=== PATIENT | female | born 1935 | race Two or more races ===

== ENCOUNTER 2025-03-02 17:38 | Emergency (ER) | payer OTHER ==
[~2025-03-02] VITALS: Ht 160 cm; Wt 40.8 kg
[2025-03-02 19:10] VITALS: BP 166/76; O2SAT 97
[2025-03-02] MEDS ORDERED: ACETAMINOPHEN 500 MG GEL..CAP PO ONE (21:00)
[2025-03-02] MEDS ORDERED: CLINDAMYCIN HCL 300 MG CAPSULE PO ONE (21:00)
[2025-03-02] MEDS ORDERED: TETANUS & DIPHTHERIA TOX,ADULT 0.5 ML VIAL IM ONE (21:00)
[2025-03-02] MEDS ORDERED: DEXAMETHASONE SODIUM PHOSPHATE 4 MG/ML VIAL IM ONE (21:00)
[2025-03-02] MEDS ORDERED: DOXYCYCLINE HYCLATE 100MG EACH PO ONE (21:00)
[2025-03-02] MEDS ORDERED: DOXYCYCLINE HY100 MG PO (21:03)
== END 2025-03-02 22:37 | disposition home or self-care (01) ==
LOC: ER 17:39
DX: S81.852A Open bite, left lower leg, initial encounter (principal); W55.01XA Bitten by cat, initial encounter; Y93.89 Activity, other specified; Y92.89 Other specified places as the place of occurrence of the external cause; Y99.9 Unspecified external cause status; I10 Essential (primary) hypertension; Z88.6 Allergy status to analgesic agent
CPT/HCPCS: 90471; 90714; 99282; J1100; J1670